=== PATIENT | male | born 1985 | race Caucasian/White ===

== ENCOUNTER 2021-06-10 14:31 | Emergency (ER) | payer SELFPAY ==
[~2021-06-10] VITALS: Ht 188 cm; Wt 97.5 kg
[2021-06-10 14:33] VITALS: BP 126/65
== END 2021-06-10 15:53 | disposition left against medical advice (07) ==
LOC: EDBD 14:31 → ER 14:42
DX: R56.9 Unspecified convulsions (principal); F12.10 Cannabis abuse, uncomplicated; Z53.29 Procedure and treatment not carried out because of patient's decision for other reasons

== ENCOUNTER 2024-11-22 12:00 | Emergency (ER) | payer MEDICAID, OTHER ==
[~2024-11-22] VITALS: Ht 185.4 cm; Wt 119.9 kg
[2024-11-22 14:16] VITALS: BP 142/93; TEMP 97.5
--- NOTE | 2024-11-22 14:32 | ED.PDOC ---
Eye-HPI HPI Comments A 39 year-old male presents to the ED with a chief complaint of lower tooth pain as of months ago. Patient states he was seen by a dentist and told he has multiple cavities and needs a root canal filled. Patient reports the pain as sharp and throbbing, with no associated relieving factors. Patient has no further symptoms at this time and otherwise denies migraine, dizziness, N/V, fever, or chills. Chief Complaint: Tooth Pain Time Seen by MD: 13:30 Primary Care Provider: NONE Reviewed Notes: Nurses Notes, Medications, Allergies Allergies: Coded Allergies: NO KNOWN ALLERGIES (Unverified , 08/31/13) Information Source: Patient Mode of Arrival: Ambulatory Timing: Months Duration: Since onset Quality: Pain Onset: Spontaneous Associated signs and symptoms: Tooth Pain Past Medical History PAST MEDICAL HISTORY: Seizures Surgical History: Denies all surgeries Family History Family History: Reviewed,noncontributory to illness Social History Smoker: Non-Smoker Alcohol: Denies ETOH Use Drugs: Marijuana Lives In: Home Constitutional: denies: chills, diaphoresis, fatigue, fever, malaise, sweats, weakness, others EENTM: reports: others (Tooth pain ); denies: blurred vision, double vision, ear bleeding, ear discharge, ear drainage, ear pain, ear ringing, eye pain, eye redness, hearing loss, mouth pain, mouth swelling, nasal discharge, nose bleeding, nose congestion, nose pain, photophobia, tearing, throat pain, throat swelling, voice changes Respiratory: denies: cough, hemoptysis, orthopnea, SOB at rest, shortness of breath, SOB with excertion, stridor, wheezing, others Cardiovascular: denies: chest pain, dizzy spells, diaphoresis, Dyspnea on exertion, edema, irregular heart beat, left arm pain, lightheadedness, palpitations, PND, syncope, others Gastrointestinal: denies: abdomen distended, abdominal pain, blood streaked bowels, constipated, diarrhea, dysphagia, difficulty swallowing, hematemesis, melena, nausea, poor appetite, poor fluid intake, rectal bleeding, rectal pain, vomiting, others Genitourinary: denies: burning, dysuria, flank pain, frequency, hematuria, incontinence, penile discharge, penile sore, pain, testicle pain, testicle swelling, urgency, others Neurological: denies: dizziness, fainting, headache, left sided numbness, left sided weakness, numbness, paresthesia, pre-existing deficit, right sided numbness, right sided weakness, seizure, speech problems, tingling, tremors, weakness, others Musculoskeletal: denies: back pain, gout, joint pain, joint swelling, muscle pain, muscle stiffness, neck pain, others Integumetry: denies: bruises, change in color, change in hair/nails, dryness, laceration, lesions, lumps, rash, wounds, others Allergic/Immunocompromised: denies: Difficulty Healing, Frequent Infections, Hives, Itching, others Hematologic/Lymphatic: denies: anemia, blood clots, easy bleeding, easy bruising, swollen glands, others Endocrine: denies: excessive hunger, excessive sweating, excessive thirst, excessive urination, flushing, intolerance to cold, intolerance to heat, unex plained weight gain, unexplained weight loss, others Psychiatric: denies: anxiety, bipolar disorder, depression, hopeless, panic disorder, schizophrenia, sleepless, suicidal, others All Other Systems: Reviewed and Negative Physical Exam General Appearance: Moderate Distress HEENT: Normal ENT Inspection, Pharynx Normal, TMs Normal, Other (Patient has tooth Carla left lower teeth needs a root canal in his in severe pain) Neck: Full Range of Motion, Non-Tender, Normal, Normal Inspection Respiratory: Chest Non-Tender, Lungs Clear, No Accessory Muscle Use, No Respiratory Distress, Normal Breath Sounds Cardiovascular: No Edema, No JVD, No Murmur, No Gallop, Normal Peripheral Pulses, Regular Rate/Rhythm Breast Exam: Deferred Gastrointestinal: No Organomegaly, Non Tender, No Pulsatile Mass, Normal Bowel Sounds, Soft Genitalia: Deferred Pelvic: Deferred Rectal: Black stool Extremities: No calf tenderness, Normal capillary refill, Normal inspection, Normal range of motion, Non-tender, No pedal edema Neurologic: Alert, supervisor tank cleaning II-XII nml as Tested, No Motor Deficits, Normal Affect, Normal Mood, No Sensory Deficits Cerebellar Function: Normal Reflexes: Normal Skin: Dry, Normal Color, Warm Lymphatic: No Adenopathy Was a procedure done? Was a procedure done?: No EENT DIFF Eye: N/A Ear: N/A Nose: N/A Mouth: N/A Sore Throat: Other Other Differential Diagnosis Tooth infection patient needs root canal and at this time can not afford it X-Ray, Labs, Meds, VS Vital Signs Date Time Temp Pulse Resp B/P (MAP) Pulse Ox O2 Delivery O2 Flow Rate FiO2 11/22/24 14:16 97.5 70 18 142/93 (109) 98 97.5 11/22/24 12:08 97.5 102 18 136/84 (101) 97 97.5 X-Ray, Labs, Meds, VS Comment Patient with a tooth infection and severe pain we will be given pain medication and discharged with antibiotics and pain medication Time of 1ST Reevaluation: 14:31 Reevaluation 1ST: Unchanged Time of 2ND Reevaluation: 14:56 Reevaluation 2ND: Unchanged Consultation: PCP, Other (dentist patient counseled to probably go to [place] and check for dental care) Patient Education/Counseling: Diagnosis, Treatment, Prognosis, Need For Follow Up Family Education/Counseling: Diagnosis, Treatment, Prognosis, Need For Follow Up, No Family Present Medical Screening: No EMC Exist At This Time SEPSIS Sepsis Screen Date sepsis recognized/suspect: Nov 22, 2024 Time Sepsis recognized/suspect: 1208 Recent Procedure: No On Antibiotic Therapy: No Respiratory Rate >20: No Heart Rate >90: Yes Temp<36 C (96.8 F) or >38.3 C: No SBP <90 or MAP <65 mmHG: No New Acute Mental Status Change: No Is the patient on CPAP, BIPAP,: No Vital Signs Date Time Temp Pulse Resp B/P (MAP) Pulse Ox O2 Delivery O2 Flow Rate FiO2 11/22/24 14:16 97.5 70 18 142/93 (109) 98 97.5 11/22/24 12:08 97.5 102 18 136/84 (101) 97 97.5 Departure 1 Departure Time of Disposition: 14:57 Impression: Primary Impression: Tooth infection Additional Impression: Pain management Disposition: HOME / SELF CARE / HOMELESS Condition: Stable Additional Instructions: Mouthwash with peroxide and follow up with a dentist e-Prescriptions Naproxen (Naproxen) 375 Mg Tab 375 MG PO TID for 10 Days, #30 TAB Prov: DOROTEO SWEENEY MD 11/22/24 Acetaminophen (Acetaminophen Extra Stren) 500 Mg Tab 500 MG PO TID for 10 Days, #30 TAB Prov: DOROTEO SWEENEY MD 11/22/24 Cefdinir (Cefdinir) 300 Mg Cap 300 MG PO BID PRN for 10 Days, #20 CAP Prov: DOROTEO SWEENEY MD 11/22/24 Discharged With: Self Critical Care Note Critical Care Time?: No Stability Stability form required: No Heart Score Heart Score: Heart Score Response (Comments) Value History N/A 0 EKG N/A 0 Age <45 0 Risk Factors No known risk factors 0 Troponin N/A 0 Total 0 I personally scribed for DOROTEO SWEENEY MD ([email or web address]) on 11/22/24 at 14:32. Electronically submitted by Luz Lopez ([email or web address]). DOROTEO SWEENEY MD Nov 22, 2024 14:32
[2024-11-22] MEDS ORDERED: NAPR-957 PO (15:00)
[2024-11-22] MEDS ORDERED: ACET-6 PO (15:00)
[2024-11-22] MEDS ORDERED: CEFD300C2 PO (15:00)
[2024-11-22 15:02] VITALS: PULSE 70; RESP 18; O2SAT 98
[2024-11-22] MEDS: KETOROLAC TROMETH 60MG/2ML VIAL IM ONE (15:15)
[2024-11-22] MEDS ORDERED: NAP500T PO (15:35)
== END 2024-11-22 15:50 | disposition home or self-care (01) ==
LOC: ER 12:00
DX: K04.7 Periapical abscess without sinus (principal)
CPT/HCPCS: 96372; 99283; J1885